=== PATIENT | female | born 1960 | race Caucasian/White ===

== ENCOUNTER → 2018-01-03 09:45 | Outpatient (CLI) | payer OTHER, SELFPAY ==
[2018-01-03 11:53] LABS: Absolute Lymphocyte Count 3.04 X10^3/ul (0.83-4.51); Absolute Neutrophil Count 4.1 X10^3/uL (2.0-7.7); Basophil# 0.02 X10^3/uL; Basophil% 0.3 % (0-1); Eosinophil# 0.14 X10^3/uL; Eosinophils% 1.8 % (0-5); Hemoglobin 14.8 g/dl (12.0-15.0); Lymphocyte # 3.04 X10^3/ul (4.0); Lymphocyte % 38.6 % (19-41); Mean Corp Hgb Conc 32.2 g/gl (32-36); Mean Corpuscular Hgb 28.6 pg (27.0-32.0); Mean Platelet Vol. 8.9 fl (6.2-12.0); Monocyte# 0.55 X10^3/uL; Neutrophil # 4.11 X10^3/uL (2.7-7.7); Neutrophil % 52.2 % (47-70); Platelet Count 328 K/mm3 (150-450); RBC Distribution Width CV 13.4 % (11.6-14.6); RBC Distribution Width SD 43.2 fl (35.1-43.9); Red Blood Count 5.17 M/mm3 (4.2-5.4); White Blood Count 7.9 K/mm3 (4.4-11.0)
[2018-01-03 11:54] LABS: POSITIVE COUNT NO; POSITIVE DIFFERENTIAL NO; POSITIVE MORPHOLOGY NO
[2018-01-03 12:09] LABS: Vitamin D,25 Hydroxy 55.8 ng/mL (29.95-100.01)
[2018-01-03 12:11] LABS: ALB/GLOB Ratio 0.8 RATIO (0.9-2.4); AST(SGOT) 21 U/L (15-37); Alanine Aminotransfer ALT/SGPT 30 U/L (13-56); Albumin, Serum 3.3 g/dL (3.2-5.0); Alkaline Phosphatase 71 U/L (45-117); Anion Gap 10 (5-15); BUN 12 mg/dL (7-18); BUN/Creat Ratio 15.4 RATIO (10-20); Calcium,Total 8.6 mg/dL (8.5-10.1); Chloride 103 mmol/L (98-107); Creatinine, Serum 0.78 mg/dL (0.55-1.02); EST Glomerular Filtration Rate 82 mL/min (>60); Est Glom Filt Rate - Afr Amer 99 mL/min (>60); Glucose 92 mg/dL (74-106); Potassium 4.5 mmol/L (3.5-5.1); Protein, Total 7.3 g/dL (6.4-8.2); Sodium Level 140 mmol/L (136-145); T4 Free Direct 1.33 ng/dL (0.76-1.46); Thyroid Stim Hormone (TSH) 2.42 uIU/mL (0.358-3.74)
== END ==
PROVIDERS: Family Provider Family Medicine; PCP Family Medicine; Visit Provider Family Medicine
DX: E55.9 Vitamin D deficiency, unspecified (principal); F32.9 Major depressive disorder, single episode, unspecified; E78.5 Hyperlipidemia, unspecified; I10 Essential (primary) hypertension
CPT/HCPCS: 36415; 80053; 82306; 84439; 84443; 85025

== ENCOUNTER → 2024-11-22 | Outpatient (CLI) | payer OTHER, SELFPAY ==
[2024-11-22 12:35] LABS: Absolute Lymphocyte Count 3.22 X10^3/uL (0.83-4.51); Absolute Neutrophil Count 3.2 X10^3/uL (2.0-7.7); Basophil# 0.05 X10^3/uL; Basophil% 0.7 % (0-1); Eosinophil# 0.23 X10^3/uL; Eosinophils% 3.2 % (0-5); Hematocrit 45.3 % (37-47); Hemoglobin 14.3 g/dL (12.0-15.0); Lymphocyte # 3.22 X10^3/ul (0.83-4.51); Lymphocyte % 44.2 % (19-41); Mean Corp Hgb Conc 31.6 g/dL (32-36); Mean Corpuscular Hgb 28.8 pg (27.0-32.0); Mean Corpuscular Volume 91.3 fL (81-99); Monocyte# 0.56 X10^3/uL; Monocyte% 7.7 % (0-10); NRBC Flagged by Analyzer 0 % (0-5); Neutrophil # 3.22 X10^3/uL (2.7-7.7); Neutrophil % 44.1 % (47-70); Platelet Count 296 K/mm3 (150-450); RBC Distribution Width CV 13.2 % (11.6-14.6); RBC Distribution Width SD 44.4 fl (35.1-43.9); Red Blood Count 4.96 M/mm3 (4.2-5.4); White Blood Count 7.3 K/mm3 (4.4-11.0)
[2024-11-22 13:17] LABS: ALB/GLOB Ratio 1.4 RATIO (0.9-2.4); AST(SGOT) 28 U/L (<=31); Alanine Aminotransfer ALT/SGPT 31 U/L (<=34); Albumin, Serum 4.1 g/dL (3.4-4.8); Alkaline Phosphatase 68 U/L (35-104); Anion Gap 11 (5-15); BUN 18 mg/dL (4-19); BUN/Creat Ratio 20.2 RATIO (10-20); Calcium,Total 9.3 mg/dL (7.6-11.0); Carbon Dioxide 22.5 mmol/L (21.0-32.0); Chloride 106 mmol/L (98-108); Cholesterol 215 mg/dL (<=200); Creatinine, Serum 0.88 mg/dL (0.70-1.20); EST Glomerular Filtration Rate 74 (>60); Glucose 99 mg/dL (70-99); High Density Lipoprotein 44 mg/dL; Low Density Lipoprotein Calc. 149 mg/dL; Potassium 4.7 mmol/L (3.3-5.1); Protein, Total 7.1 g/dL (5.9-8.4); Sodium Level 139 mmol/L (133-145); Total Bilirubin 0.52 mg/dL (0.00-1.30); Triglycerides 109 mg/dL; Very Low Density Lipoprotein 22 mg/dL (5-40); cholesterol:hdl ratio screen 4.84
== END | disposition home or self-care (01) ==
LOC: BIMLAB 09:58
PROVIDERS: PCP Internal Medicine; Referring Provider Internal Medicine; Visit Provider Internal Medicine
DX: Z00.00 Encounter for general adult medical examination without abnormal findings (principal)
CPT/HCPCS: 36415; 80053; 80061; 85025

== ENCOUNTER → 2024-12-12 | Outpatient (CLI) | payer OTHER, SELFPAY ==
--- NOTE | 2024-12-12 16:21 | BD_ITS ---
PROCEDURE: DEXA BONE DENSITY STUDY 12/12/2024 REASON FOR EXAM: POST MENOPAUSAL F, age 64 y/o . Postmenopausal. TECHNIQUE: DEXA BONE DENSITY STUDY COMPARISON: None FINDINGS: BMD and T-SCORES Lumbar spine: 1.035 g/cm2, T-score -0.1 Levels: L1 through L4 Left femoral neck: 0.665 g/cm2, T-score -1.7 Femoral neck comparison data not recommended for monitoring change. Left total hip: 0.815 g/cm2, T-score -1.0 Right femoral neck: 0.695 g/cm2, T-score -1.4 Femoral neck comparison data not recommended for monitoring change. Right total hip: 0.771 g/cm2, T-score -1.4 The World Health Organization has defined the following categories based on bone density: Normal bone density: T-score equal to or greater than -1.0 Osteopenia: T-score between -1.0 and -2.5 Osteoporosis: T-score equal to or less than -2.5 The patient does meet the pharmacological treatment recommendations for prevention of osteoporosis. BD/Dexa Bone Density Study IMPRESSION: OSTEOPENIA. Recommend follow-up as clinically warranted. Reading Location: [place] [id number]
== END | disposition home or self-care (01) ==
LOC: OPBD 16:17
PROVIDERS: PCP Internal Medicine; Referring Provider Internal Medicine; Visit Provider Internal Medicine
DX: Z13.820 Encounter for screening for osteoporosis (principal); Z78.0 Asymptomatic menopausal state
CPT/HCPCS: 77080

== ENCOUNTER → 2025-05-12 | Outpatient (CLI) | payer OTHER, SELFPAY ==
--- OUTSIDE RECORDS SUMMARY | 2025-05-12 08:08 | XMS RPT_ITS | CCD ---
Author Organization [facility] Care Team Providers Care Barrel [place] Name Role Phone Micheal Rust MD Primary Care Provider [phone] Barrera LIN, Dr. Burton Primary Care Provider Desiree Rust MD, Dr. Burton Referring Provider UnavailDillon Sharif Attending Provider Dr. Rizwan Guzman MD Attending Provider Dr. Rizwan Guzman MD Primary Care Provider Dr. Rizwan Guzman MD Referring Provider Dr. Micheal Rust MD Primary Care Provider Desiree Rust MD, Dr. Burton Referring Provider UnavailDillon Sharif Attending Provider Oleghe, Efewongbe Referring Unavailable Oleghe, Efewongbe Primary Care Unavailable Dillon Hernandez Attending Unavailable Oleghe, Efewongbe Attending Unavailable Oleghe, Efewongbe Referring Unavailable Oleghe, Efewongbe Primary Care Unavailable Oleghe, Efewongbe Attending Unavailable Oleghe, Efewongbe Referring Unavailable Oleghe, Efewongbe Primary Care Unavailable Maryjoe, Efewongbe Attending Unavailable Micheal Rust Primary Care Unavailable Micheal Rust Referring Unavailable Dillon Hernandez Attending Unavailable Micheal Rust Primary Care Unavailable Micheal Rust Referring Unavailable Rizwan Guzman MD Primary Care Provider OLEGHE, EFEWONGBE B Primary Care Unavailable OLEGHE, EFEWONGBE B Attending Unavailable OLEGHE, EFEWONGBE B Referring Unavailable Allergies Allergy Classification Reported Allergen(s) Allergy Type Date of Onset Reaction(s) Facility (4 sources) Penicillins Allergy to substance 5 [facility] (4 sources) Tetracyclines Allergy to substance 5 [facility] (1 source) Penicillins Drug allergy (disorder) 5 [facility] Repository (1 source) Tetracyclines Drug allergy (disorder) 5 [facility] Repository Medications Current Medications Medication Drug Class(es) Dates Sig (Normalized) Sig (Original) biotin 1 mg chewable tablet (4 sources) Start: 09-22-2024 take 1 tablet by mouth once daily Biotin 1,000 mcg tablet,chewable Active 1000 ug PO daily September 22, 2024 12:00am busPIRone hydrochloride 7.5 mg oral tablet (8 sources) Start: 09-22-2024 End: 02-12-2025 take 1 tablet by mouth twice daily as needed for anxiety Buspirone 7.5 mg tablet Active 7.5 mg PO TWICE A DAY as needed for anxiety 90 0 February 12, 2025 9:21am cholecalciferol 0.05 mg oral capsule (4 sources) Vitamin D Start: 09-22-2024 take 1 capsule by mouth once daily Cholecalciferol (Vitamin D3) 50 mcg (2,000 unit) capsule Active 50 ug PO daily September 22, 2024 12:00am estradiol 1 mg oral tablet (7 sources) Estrogen Start: 02-18-2016 End: 11-22-2024 take 1 tablet by mouth once daily Estradiol 1 mg tablet Active 1 mg PO DAILY 90 1 November 22, 2024 10:16am fluticasone propionate 0.05 mg/actuat metered dose nasal spray (4 sources) Corticosteroid Start: 09-22-2024 take 50 ug nasal route once daily as needed Fluticasone Propionate (Flonase Allergy Relief) 50 mcg/actuation spray,suspension Active 1 NMA INTRANASAL daily as needed September 22, 2024 12:00am administer into each nostril lisinopril 10 mg oral tablet (7 sources) Angiotensin Converting Enzyme Inhibitor Start: 09-22-2024 End: 11-22-2024 Lisinopril 10 mg tablet Active 15 mg PO daily 135 90 November 22, 2024 10:15am loratadine 10 mg oral tablet (4 sources) Start: 11-22-2024 take 1 tablet by mouth once daily as needed Loratadine (Claritin) 10 mg tablet Active 10 mg PO daily as needed November 22, 2024 12:00am methylcellulose 500 mg oral tablet (4 sources) Start: 09-22-2024 take 1 tablet by mouth twice daily Methylcellulose (Laxative) (Citrucel) 500 mg tablet Active 500 mg PO TWICE A DAY September 22, 2024 12:00am solifenacin succinate 10 mg oral tablet (7 sources) Cholinergic Muscarinic Antagonist Start: 09-22-2024 End: 11-22-2024 take 1 tablet by mouth once daily Solifenacin 10 mg tablet Active 10 mg PO daily 90 1 November 22, 2024 10:15am Completed/Discontinued Medications Medication Drug Class(es) Dates Sig (Normalized) Sig (Original) aspirin 81 mg chewable tablet (4 sources) Platelet Aggregation Inhibitor, Nonsteroidal Anti-inflammatory Drug Start: 6 End: 5 take 1 tablet by mouth once daily Aspirin 81 MG tablet,chewable Discontinued 81 mg PO DAILY@0800 February 18, 2016 12:00am September 22, 2024 3:28pm benzonatate 100 mg oral capsule (4 sources) Non-narcotic Antitussive Start: 5 End: 5 take 2 capsules by mouth three times daily as needed for cough Benzonatate 100 mg capsule Discontinued 200 mg PO THREE TIMES A DAY as needed for cough 30 0 September 22, 2024 12:00am February 23, 2025 6:58am ciprofloxacin 500 mg oral tablet (4 sources) Quinolone Antimicrobial Start: 6 End: 3 take 1 tablet by mouth twice daily Ciprofloxacin Hcl 500 MG tablet Discontinued 500 mg PO TWICE A DAY 6 0 February 25, 2016 12:00am April 26, 2023 10:55am dextroamphetamine sulfate 15 mg extended release oral capsule (4 sources) Central Nervous System Stimulant Start: 6 End: 5 take 1 capsule by mouth once daily Dextroamphetamine Sulfate 15 MG capsule, extended release Discontinued 15 mg PO DAILY February 18, 2016 12:00am September 22, 2024 3:31pm 24 hr isosorbide mononitrate 30 mg extended release oral tablet (4 sources) Nitrate Vasodilator Start: 6 End: 5 take 1 tablet by mouth once daily, then take 1 tablet by mouth every twenty-four hours Isosorbide Mononitrate 30 MG tablet extended release 24 hr Discontinued 30 mg PO DAILY February 18, 2016 12:00am September 22, 2024 3:31pm methylPREDNISolone 4 mg oral tablet (8 sources) Corticosteroid Start: 1 End: 5 take 1 tablet by mouth once Methylprednisolone (Medrol (Gomez)) 4 mg tablets,dose pack Discontinued 4 mg PO per package directions 21 6 0 September 22, 2024 12:00am September 27, 2024 12:00am September 28, 2024 12:14am nitrofurantoin, macrocrystals 25 mg / nitrofurantoin, monohydrate 75 mg oral capsule (4 sources) Nitrofuran Antibacterial Start: 3 End: 3 take 1 capsule by mouth every twelve hours at mealtime Nitrofurantoin Monohyd/M-Cryst (Macrobid) 100 mg capsule Discontinued 100 mg PO Q12H 14 7 0 April 26, 2023 12:00am May 02, 2023 12:00am May 03, 2023 1:04am must administer with a meal/food phenazopyridine hydrochloride 100 mg oral tablet (4 sources) Start: 6 End: 5 take 1 tablet by mouth three times daily Phenazopyridine 100 MG tablet Discontinued 100 mg PO THREE TIMES A DAY 14 0 February 25, 2016 12:00am September 22, 2024 3:31pm simvastatin 40 mg oral tablet (4 sources) HMG-CoA Reductase Inhibitor Start: 6 End: 5 take 1 tablet by mouth at bedtime Simvastatin 40 MG tablet Discontinued 40 mg PO AT BEDTIME February 18, 2016 12:00am September 22, 2024 3:31pm Problems Active Problems Problem Classification Problem Date Documented Da te Episodic/Chronic Administrative/social admission (6 sources) First encounter by subject; Translations: [Persons encountering health services in other specified circumstances] 11-22-2024 Episodic Anxiety disorders (3 sources) Anxiety; Translations: [Anxiety disorder, unspecified] 11-22-2024 Chronic Essential hypertension (7 sources) Hypertensive disorder; Translations: [Essential (primary) hypertension] 09-22-2024 Chronic Other diseases of bladder and urethra (6 sources) Overactive bladder; Translations: [Overactive bladder] 11-22-2024 Chronic Other screening for suspected conditions (not mental disorders or infectious disease) (15 sources) Patient encounter status; Translations: [Encounter for screening mammogram for malignant neoplasm of breast] Onset: 11-22-2024 Episodic Unclassified (9 sources) Encounter for screening for malignant neoplasm of colon; Translations: [Z12.11 - Encounter for screening for malignant neoplasm of colon] Unclassified (4 sources) Z00.00 - Encounter for general adult medical examination without abnormal findings Unclassified (1 source) Encounter for preventive care Urinary tract infections (4 sources) Urinary tract infectious disease; Translations: [Urinary tract infection, site not specified] 04-26-2023 Episodic Past or Other Problems Problem Classification Problem Date Documented Da te Episodic/Chronic Acute bronchitis (8 sources) Acute bronchitis; Translations: [Acute bronchitis, unspecified] Onset: 11-22-2024 09-22-2024 Episodic Unclassified (2 sources) Patient encounter status 03-22-2025 Results Test Name Value Interpretation Reference Range Facility MAMMO SCREENING WITH BESSY BI LATERALon 03-22-2025 MAMMO SCREENING WITH BESSY BILATERAL EXAM: MAMMO SCREENING WITH BESSY BILATERAL, 03/22/2025 12:58 PM CLINICAL INDICATIONS: Screening COMPARISON: March 15, 2024, March 15, 2023, March 19, 2022 TECHNIQUE: 3-D MLO and CC digital tomosynthesis images were obtained of the bilateral breasts. Synthetic 2-D images were generated from the tomosynthesis data. Computer aided detection was utilized. FINDINGS: Breast Density: The breasts are heterogeneously dense, which may obscure small masses. There are no suspicious masses, calcifications, or architectural distortions. IMPRESSION: No mammographic evidence of malignancy. BI-RADS: 1: Negative Recommendation: Routine mammography. Recommendation Laterality: Bilateral The current National [employer] Network and [employer] guidelines recommend women undergo a screening mammogram every year over the age of 40 and continue mammographic screening as long as they are in good health. Screening mammography under age 40 may occur for women who are at increased risk for breast cancer. [facility] Facility: [facility], [address] [place] [address], Table formatting from the original result was not included. MAMMO STANDARD RISK MQ[facility] SITE BEGIN [facility] [address] [place], [place] [address] MQSA SITE END Normal [facility] MG Breast - bilateral Screen ingon 03-22-2025 IMPRESSION: No mammographic evidence of malignancy. BI-RADS: 1: Negative Recommendation: Routine mammography. Recommendation Laterality: Bilateral The current National [employer] Network and [employer] guidelines recommend women undergo a screening mammogram every year over the age of 40 and continue mammographic screening as long as they are in good health. Screening mammography under age 40 may occur for women who are at increased risk for breast cancer. [facility] Facility: [facility], [address] [place], [place] [address], OLOGY EXAM: MAMMO SCREENING WITH BESSY BILATERAL, 03/22/2025 12:58 PM CLINICAL INDICATIONS: Screening COMPARISON: March 15, 2024, March 15, 2023, March 19, 2022 TECHNIQUE: 3-D MLO and CC digital tomosynthesis images were obtained of the bilateral breasts. Synthetic 2-D images were generated from the tomosynthesis data. Computer aided detection was utilized. FINDINGS: Breast Density: The breasts are heterogeneously dense, which may obscure small masses. There are no suspicious masses, calcifications, or architectural distortions. RADIOLOGY Santos Griffith MD - 03/22/2025 EXAM: MAMMO SCREENING WITH BESSY BILATERAL, 03/22/2025 12:58 PM CLINICAL INDICATIONS: Screening COMPARISON: March 15, 2024, March 15, 2023, March 19, 2022 TECHNIQUE: 3-D MLO and CC digital tomosynthesis images were obtained of the bilateral breasts. Synthetic 2-D images were generated from the tomosynthesis data. Computer aided detection was utilized. FINDINGS: Breast Density: The breasts are heterogeneously dense, which may obscure small masses. There are no suspicious masses, calcifications, or architectural distortions. IMPRESSION IMPRESSION: No mammographic evidence of malignancy. BI-RADS: 1: Negative Recommendation: Routine mammography. Recommendation Laterality: Bilateral The current National Comprehensive Cancer Network and [employer] guidelines recommend women undergo a screening mammogram every year over the age of 40 and continue mammographic screening as long as they are in good health. Screening mammography under age 40 may occur for women who are at increased risk for breast cancer. [facility] Facility: [facility], [address] [place] [address], [place], [place] [address], [facility] Study observation (narrative) [facility] MG Breast - bilateral Screen ingOrdered By: Santos Griffith on 03-22-2025 [facility] Work Phone: Urgent Care Visit Reporton 0 02-23-2025 Urgent Care Visit Report [facility] [address], [address] [place] [address] OFFICE VISIT Date of Service: 02/23/25 MR#: [id number] Acct: [id number] Name: SHIRA MAGALLANES Rep #: [id number] : 1960 Provider: LEONARDO Brice Age/Sex: 64/F Location: [facility] Status: Signed Intake Vital Signs 11/22/24 09:30 02/23/25 06:58 Height 5 ft 5 ft Weight: 151 lb 4 oz 150 lb BMI 29.5 29.2 BP 138/80 H 132/72 H Blood Pressure Location Rt brachial Lt brachial Position Sitting Sitting Respiration 16 Pulse 66 69 Pulse Source Monitor Monitor Temp 96.3 F L 98.3 F Temp Source Temporal Oral Pulse Oximetry (%) 99 97 Oxygen Delivery Method room air room air Intake Visit Reasons: cough Chief Complaint: Cough Accompanied by: Self Allergies Penicillins Allergy (Verified 02/23/25 06:57) Rash Tetracyclines Allergy (Verified 02/23/25 06:57) Rash Medications ???Medication ???Instructions ???Recorded ???Confirmed ???Type biotin 1,000 mcg chewable tablet 1,000 mcg PO QDAY 09/22/24 5 History cholecalciferol (vitamin D3) 50 50 mcg PO QDAY 09/22/24 02/23/25 H istory mcg (2,000 unit) capsule fluticasone propionate 50 1 spray intranasal QDAY PRN 02/23/25 History mcg/actuation nasal spray,suspension (Flonase Allergy Relief) methylcellulose (laxative) 500 mg 500 mg PO BID 09/22/24 02/23/25 H istory tablet (Citrucel) estradiol 1 mg tablet 1 mg PO DAILY #90 tabs 11/22/24 Rx lisinopril 10 mg tablet 15 mg (1.5 x 10 mg) PO QDAY 90 02/23/25 Rx days #135 tabs loratadine 10 mg tablet (Claritin) 10 mg PO QDAY PRN 11/22/2402/23 History solifenacin 10 mg tablet 10 mg PO QDAY #90 tabs 11/22/24 Rx buspirone 7.5 mg tablet 7.5 mg PO BID PRN anxiety #90 tabs 02/12/25 02/23/25 Rx benzonatate 100 mg capsule 200 mg (2 x 100 mg) PO TID PRN 02/23/25 Rx cough #30 caps methylprednisolone 4 mg tablets in 4 mg PO PER PKG DIR 6 days #21 t abs 02/23/25 02/23/25 Rx a dose pack (Medrol (Gomez)) Nurse's Note: Cough. X 2.5 weeks. [facility] Medical History (Updated 11/22/24 @ 10:[address] iRzwan Guzman MD) Overactive bladder Encounter to establish care Colon cancer screening Preventative health care Anxiety Hypertension History of kidney stones Urinary tract infection with hematuria Surgical History History of cholecystectomy History of appendectomy History of hysterectomy Family History (Updated 11/22/24 @ 09:26 by Nicol Martínez) Father Alcoholism Mother Depression Anxiety Hypertension Hyperlipidemia Aunt Breast cancer Cervical cancer Grandmother Colon cancer Social History (Updated 11/22/24 @ 09:37 by Nicol Martínez) adopted: No household members: spouse housing: house number of children: 0 current occupational status: employed current occupational exposures/hazards: No pets and animals: No leisure activities: other history of recent travel: No Smoking Status: Never smoker alcohol intake: current alcohol intake frequency: holidays/special occasions only substance use type: does not use well-balanced diet: daily or most days caffeine: Yes eating out: 1-3 times/week during the past year weight has: remained stable what type of physical activity do you participate in: walking frequency: 1-2 times per week duration: 15-30 minutes/day seatbelt use: always do you feel safe at home: Yes HPI HPI Chief Complaint: Cough Details: SHIRA MAGALLANES, is a 64 F who presents to the office today for complaint of cough and congestion for the past 2 weeks. Patient denies hemoptysis, shortness of breath or difficulty breathing. No loss of taste or smell. No nausea, vomiting or diarrhea. No other associated symptoms or alleviating/aggrava ting factors. ROS Const Constitutional: Positive for other (see HPI, otherwise normal ROS) Exam Const General: cooperative and well developed HENMT Head: normal to inspection and atraumatic Ears: hearing grossly normal bilaterally Nose: nasal discharge clear Face and sinus: normal facial exam Mouth: oral mucosae normal Throat: abnormal tonsil bilaterally hypertrophy 1+ Resp Effort Inspection: normal respiratory effort and no audible wheezes Auscultation: Bilateral: Clear to Auscultation Cardio Palpation: normal PMI Rate: regular rate Rhythm: regular rhythm Neuro General: patient alert and CN's II-XI intact bilaterally Psych Appearance: grossly normal Mental Status: mental status grossly normal Coding Level of Care Code Off vis,est,level 3 Diagnoses Acute bronchitis J20.9 Assessment and Plan Assessment and Plan (1) Acute bronchitis: Status: Acute Medicati (more content not included)... Normal [facility] Bone density reportOrdered B y: Brant Allison on 12-13-2024 Study report Skeletal system DXA [facility] Imaging Services [address] [place] [address] Dexa Bone Density Study MR#: [id number] Acct: [id number] Name: SHIRA MAGALLANES Rep #: [id number] : 1960 F 64 From: Heraclio Allison MD PCP: Dr. Rizwan Guzman MD Status: R EG CLI Study:Dexa Bone Density Study Date of Exam: 12/12/24 Exam# [id number] Ordering Dr: Blair Guzman MD PROCEDURE: DEXA BONE DENSITY STUDY 12/12/2024 REASON FOR EXAM: POST MENOPAUSAL F, age 64 y/o . Postmenopausal. TECHNIQUE: DEXA BONE DENSITY STUDY COMPARISON: None FINDINGS: BMD and T-SCORES Lumbar spine: 1.035 g/cm2, T-score -0.1 Levels: L1 through L4 Left femoral neck: 0.665 g/cm2, T-score -1.7 Femoral neck comparison data not recommended for monitoring change. Left total hip: 0.815 g/cm2, T-score -1.0 Right femoral neck: 0.695 g/cm2, T-score -1.4 Femoral neck comparison data not recommended for monitoring change. Right total hip: 0.771 g/cm2, T-score -1.4 The World Health Organization has defined the following categories based on bonedensity: Normal bone density: T-score equal to or greater than -1.0 Osteopenia: T-score between -1.0 and -2.5 Osteoporosis: T-score equal to or less than -2.5 The patient does meet the pharmacological treatment recommendations for prevention of osteoporosis. BD/Dexa Bone Density Study IMPRESSION: OSTEOPENIA. Recommend follow-up as clinically warranted. Reading Location: [facility]- CC: Dr. Rizwan Guzman MD ~ Equipment Analyst: Signed [facility] Dexa Bone Density Studyon Dexa Bone Density Study [facility] Imaging Services [address] [place] [id number] Dexa Bone Density Study MR#: [id number] Acct: [id number] Name: SHIRA MAGALLANES Rep #: [id number] : 1960 F 64 From: Brant marcus MD PCP: Dr. Rizwan Guzman MD Status: REG CLI Study: Dexa Bone Density Study Date of Exam: 12/12/24 Exam# [id number] Ordering Dr: Rizwan Guzman MD PROCEDURE: DEXA BONE DENSITY STUDY 12/12/2024 REASON FOR EXAM: POST MENOPAUSAL F, age 64 y/o . Postmenopausal. TECHNIQUE: DEXA BONE DENSITY STUDY COMPARISON: None FINDINGS: BMD and T-SCORES Lumbar spine: 1.035 g/cm2, T-score -0.1 Levels: L1 through L4 Left femoral neck: 0.665 g/cm2, T-score -1.7 Femoral neck comparison data not recommended for monitoring change. Left total hip: 0.815 g/cm2, T-score -1.0 Right femoral neck: 0.695 g/cm2, T-score -1.4 Femoral neck comparison data not recommended for monitoring change. Right total hip: 0.771 g/cm2, T-score -1.4 The World Health Organization has defined the following categories based on bone density: Normal bone density: T-score equal to or greater than -1.0 Osteopenia: T-score between -1.0 and -2.5 Osteoporosis: T-score equal to or less than -2.5 The patient does meet the pharmacological treatment recommendations for prevention of osteoporosis. BD/Dexa Bone Density Study IMPRESSION: OSTEOPENIA. Recommend follow-up as clinically warranted. Reading Location: [place] [address] CC: Dr. Rizwan Guzman MD Equipment Analyst: Signed Normal [facility] Absolute lymphocyte countOrd ered By: Rizwan Guzman on 11-22-2024 Lymphocytes Auto (Unsp spec) [#/Vol] 3.22 10*3/uL 0.83-4.51 [facility] Absolute neutrophil countOrd ered By: Rizwan Guzman on 11-22-2024 Neutrophils (Bld) [#/Vol] 3.2 10*3/uL 2.0-7.7 [facility] Anion gap in Serum or Plasma Ordered By: Rizwan Guzman on 11-22-2024 Anion gap [Moles/Vol] 11 mmol/L 5-15 [facility] Automated lymphocyte count a s percentage of total leukocytesOrdered By: Rizwan Guzman on 11-22-2024 Lymphocytes/100 WBC Auto (Unsp spec) 44.2 % High 19-41 [facility] BUN/creatinine ratioOrdered By: Reginomiddleburgminnie Guzman on 11-22-2024 Urea nitrogen/Creatinine [Mass ratio] 20.2 mg/mg High 10-20 [facility] Basophil percentageOrdered B y: Rizwan Guzman on 11-22-2024 Basophils/100 WBC (Bld) 0.7 % 0-1 [facility] Bilirubin, totalOrdered By: julia Guzman on 11-22-2024 Bilirubin [Mass/Vol] 0.52 mg/dL 0.00-1.30 [facility] CBC W/Diff, Automatedon 10-27 Absolute Lymph 3.22 X10 3/uL Normal 0.83-4.51 [facility] Comment on above: Performed By: #### L 500.4050, L100.0100, L500.4100 #### [facility] Laboratory [address] [place], [address] Absolute Neut 3.2 X10 3/uL Normal 2.0-7.7 [facility] Comment on above: Performed By: #### L 500.4050, L100.0100, L500.4100 #### [facility] Laboratory [address] [place], [address] Basophils/100 WBC (Bld) 0.7 % Normal 0-1 [facility] Comment on above: Performed By: #### L 500.4050, L100.0100, L500.4100 #### [facility] Laboratory [address] [place], [address] Eosinophils/100 WBC (Bld) 3.2 % Normal 0-5 [facility] Comment on above: Performed By: #### L 500.4050, L100.0100, L500.4100 #### [facility] Laboratory [address] [place], [address] Erythrocyte distribution width (RBC) [Ratio] 13.2 % Normal 11.6-14.6 [facility] Comment on above: Performed By: #### L 500.4050, L100.0100, L500.4100 #### [facility] Laboratory [address] [place], [address] Hematocrit (Bld) [Volume fraction] 45.3 % Normal 37-47 [facility] Comment on above: Performed By: #### L 500.4050, L100.0100, L500.4100 #### [facility] Laboratory [address] [place], [address] Hemoglobin (Bld) [Mass/Vol] 14.3 g/dL Normal 12.0-15.0 [facility] Comment on above: Performed By: #### L 500.4050, L100.0100, L500.4100 #### [facility] Laboratory [address] [place], [address] IG% 0.100 Normal 0.0-0.9 [facility] Comment on above: Result Comment: IG% - Immature Granulocytes (promyelocytes, myelocytes and metamyelocytes) > 1% indicates that a LEFT SHIFT is Present. Performed By: #### L 500.4050, L100.0100, L500.4100 #### [facility] Laboratory [address] [place], [address] Lymphocytes/100 WBC (Bld) 44.2 % High 19-41 [facility] Comment on above: Performed By: #### L 500.4050, L100.0100, L500.4100 #### [facility] Laboratory [address] [place], [address] MCH (RBC) [Entitic mass] 28.8 pg Normal 27.0-32.0 [facility] Comment on above: Performed By: #### L 500.4050, L100.0100, L500.4100 #### [facility] [facility] [address] [place], [address] MCHC (RBC) [Mass/Vol] 31.6 g/dL Low 32-36 [facility] Comment on above: Performed By: #### L 500.4050, L100.0100, L500.4100 #### [facility] [address] [place], [address] MCV (RBC) [Entitic vol] 91.3 fL Normal 81-99 [facility] Comment on above: Performed By: #### L 500.4050, L100.0100, L500.4100 #### [facility] [address] [place], [address] Monocytes/100 WBC (Bld) 7.7 % Normal 0-10 [facility] Comment on above: Performed By: #### L 500.4050, L100.0100, L500.4100 #### [facility] [address] [place], [address] Neutrophils/100 WBC (Bld) 44.1 % Low 47-70 [facility] Comment on above: Performed By: #### L 500.4050, L100.0100, L500.4100 #### [facility] [address] [place], [address] Nucleated RBC (Bld) [#/Vol] 0 10*3/uL Normal 0-5 [facility] Comment on above: Performed By: #### L 500.4050, L100.0100, L500.4100 #### [facility] [address] [place], [address] Platelet mean volume (Bld) [Entitic vol] 9.0 fL Normal 6.2-12.0 [facility] Comment on above: Performed By: #### L 500.4050, L100.0100, L500.4100 #### [facility] [address] [place], [address] Platelets (Bld) [#/Vol] 296 10*3/uL Normal 150-450 [facility] Comment on above: Performed By: #### L 500.4050, L100.0100, L500.4100 #### [facility] [address] [place], [address] RBC (Bld) [#/Vol] 4.96 10*6/uL Normal 4.2-5.4 [facility] Comment on above: Performed By: #### L 500.4050, L100.0100, L500.4100 #### [facility] [address] [place], [address] RDW SD 44.4 fl High 35.1-43.9 [facility] Comment on above: Performed By: #### L 500.4050, L100.0100, L500.4100 #### [facility] [address] [place], [address] WBC (Bld) [#/Vol] 7.3 10*3/uL Normal 4.4-11.0 [facility] Comment on above: Performed By: #### L 500.4050, L100.0100, L500.4100 #### [facility] [address] [place], [address] Calculated very low density lipoprotein (VLDL) cholesterol measurementOrdered By: Rizwan Guzman on 11-22-2024 Calculated very low density lipoprotein (VLDL) cholesterol measurement 22 mg/dL 5-40 [facility] Carbon dioxide, total [Moles /volume] in Central venous bloodOrdered By: Rizwan Guzman on 11-22-2024 CO2 [Moles/Vol] 22.5 mmol/L 21.0-32.0 [facility] Chloride assayOrdered By: Charleen Guzman on 11-22-2024 Chloride [Moles/Vol] 106 mmol/L 98-108 [facility] Comprehensive Metabolic Prof ilon 11-22-2024 Albumin [Mass/Vol] 4.1 g/dL Normal 3.4-4.8 [facility] Comment on above: Performed By: #### L 500.4050, L100.0100, L500.4100 #### [facility] [address] [place], [address] Albumin/Globulin [Mass ratio] 1.4 {ratio} Normal 0.9-2.4 [facility] Comment on above: Performed By: #### L 500.4050, L100.0100, L500.4100 #### [facility] [address] [place], [address] ALK PHOS 68 U/L Normal 35-104 [facility] Comment on above: Performed By: #### L 500.4050, L100.0100, L500.4100 #### [facility] [address] [place], [address] ALT [Catalytic activity/Vol] 31 U/L Normal <=34 [facility] Comment on above: Performed By: #### L 500.4050, L100.0100, L500.4100 #### [facility] [address] [place], [address] AST [Catalytic activity/Vol] 28 U/L Normal <=31 [facility] Comment on above: Performed By: #### L 500.4050, L100.0100, L500.4100 #### [facility] [address] [place], [address] Bilirubin [Mass/Vol] 0.52 mg/dL Normal 0.00-1.30 [facility] Comment on above: Performed By: #### L 500.4050, L100.0100, L500.4100 #### [facility] [address] [place], [address] BUN/CRE 20.2 RATIO High 10-20 [facility] Comment on above: Performed By: #### L 500.4050, L100.0100, L500.4100 #### [facility] [address] [place], [address] Calcium [Mass/Vol] 9.3 mg/dL Normal 7.6-11.0 [facility] Comment on above: Performed By: #### L 500.4050, L100.0100, L500.4100 #### [facility] [address] [place], [address] Chloride [Moles/Vol] 106 mmol/L Normal 98-108 [facility] Comment on above: Performed By: #### L 500.4050, L100.0100, L500.4100 #### [facility] [address] [place], [address] CO2 [Moles/Vol] 22.5 mmol/L Normal 21.0-32.0 [facility] Comment on above: Performed By: #### L 500.4050, L100.0100, L500.4100 #### [facility] [address] [place], [address] Creatinine [Mass/Vol] 0.88 mg/dL Normal 0.70-1.20 [facility] Comment on above: Performed By: #### L 500.4050, L100.0100, L500.4100 #### [facility] [address] [place], [address] GAP 11 Normal 5-15 [facility] Comment on above: Performed By: #### L 500.4050, L100.0100, L500.4100 #### [facility] [address] [place], [address] GFR/1.73 sq M.predicted among non-blacks MDRD (S/P/Bld) [Vol rate/Area] 74 mL/min/{1.73_m2} Normal >60 [facility] Comment on above: Result Comment: mL/m in/1.73m2 CKD-EPI Creatinine Equation (2020) Performed By: #### L 500.4050, L100.0100, L500.4100 #### [facility] [address] [place], [address] Globulin (S) [Mass/Vol] 3.0 g/dL Normal 2.2-4.2 [facility] Comment on above: Performed By: #### L 500.4050, L100.0100, L500.4100 #### [facility] [address] [place], [address] Glucose [Mass/Vol] 99 mg/dL Normal 70-99 [facility] Comment on above: Performed By: #### L 500.4050, L100.0100, L500.4100 #### [facility] [address] [place], [address] Potassium [Moles/Vol] 4.7 mmol/L Normal 3.3-5.1 [facility] Comment on above: Performed By: #### L 500.4050, L100.0100, L500.4100 #### [facility] [address] [place], [address] Sodium [Moles/Vol] 139 mmol/L Normal 133-145 [facility] Comment on above: Performed By: #### L 500.4050, L100.0100, L500.4100 #### [facility] [address] [place], [address] T PROT 7.1 g/dL Normal 5.9-8.4 [facility] Comment on above: Performed By: #### L 500.4050, L100.0100, L500.4100 #### [facility] [address] [place], [address] Urea nitrogen [Mass/Vol] 18 mg/dL Normal 4-19 [facility] Comment on above: Performed By: #### L 500.4050, L100.0100, L500.4100 #### [facility] [address] [place], [address] Eosinophil percentageOrdered By: Rizwan Guzman on 11-22-2024 Eosinophils/100 WBC (Bld) 3.2 % 0-5 [facility] Erythrocyte distribution wid th ratioOrdered By: yudelkamiddle[place]minnie Guzman on 11-22-2024 Erythrocyte distribution width (RBC) [Ratio] 13.2 % 11.6-14.6 [facility] Erythrocyte distribution wid th standard deviationOrdered By: yudelkamiddleburgminnie Guzman on 11-22-2024 Erythrocyte distribution width (RBC) [Ratio] 44.4 fl High 35.1-43.9 [facility] Glomerular filtration rate ( GFR) estimation/1.73 sq m using serum, plasma, or whole bOrdered By: julia Guzman on 11-22-2024 GFR/1.73 sq M.predicted among non-blacks MDRD (S/P/Bld) [Vol rate/Area] 74 mL/min/{1.73_m2} >60 [facility] Comment on above: mL/min/1.73m2 CKD-EP I Creatinine Equation (2020) Hematocrit Auto (Bld) [Volum e fraction]Ordered By: Rizwan Guzman on 11-22-2024 Hematocrit (Bld) [Volume fraction] 45.3 % 37-47 [facility] Hemoglobin measurementOrdere d By: Rizwan Guzman on 11-22-2024 Hemoglobin (Bld) [Mass/Vol] 14.3 g/dL 12.0-15.0 [facility] Immature granulocytes/100 WB C Auto (Bld)Ordered By: Rizwan Guzman on 11-22-2024 Immature granulocytes/100 WBC (Bld) 0.100 % 0.0-0.9 [facility] Comment on above: IG% - Immature Granu locytes (promyelocytes, myelocytes and metamyelocytes) > 1% indicates that a LEFT SHIFT is Present. Internal Medicine Office Vis ladonna 11-22-2024 Internal Medicine Office Visit [facility] [address] [place] [address] OFFICE VISIT Date of Service: 11/22/24 MR#: [id number] Acct: [id number] Name: SHIRA MAGALLANES Rep #: [id number] : 1960 Provider: Dr. 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 Chief Complaint: Establish care Health Program Director Required: No Accompanied by: Is patient in pain?: No Allergies Penicillins Allergy (Verified 11/22/24 09:19) Rash Tetracyclines Allergy (Verified 11/22/24 09:19) Rash Medications ???Medication ???Instructions ???Recorded ???Confirmed ???Type benzonatate 100 mg capsule 200 mg (2 x 100 mg) PO TID PRN 11/22/24 Rx cough #30 caps biotin 1,000 mcg chewable tablet 1,000 mcg PO QDAY 09/22/24 5 History cholecalciferol (vitamin D3) 50 50 mcg PO QDAY 09/22/24 11/22/24 H istory mcg (2,000 unit) capsule fluticasone propionate 50 1 spray intranasal QDAY PRN 11/22/24 History mcg/actuation nasal spray,suspension (Flonase Allergy Relief) methylcellulose (laxative) 500 mg 500 mg PO BID 09/22/24 11/22/24 H istory tablet (Citrucel) buspirone 7.5 mg tablet 7.5 mg PO BID PRN anxiety #90 tabs 11/22/24 11/22/24 Rx estradiol 1 mg tablet 1 mg PO DAILY #90 tabs 11/22/24 Rx lisinopril 10 mg tablet 15 mg (1.5 x 10 mg) PO QDAY 90 11/22/24 Rx days #135 tabs loratadine 10 mg tablet (Claritin) 10 mg PO QDAY PRN 11/22/2411/22 History solifenacin 10 mg tablet 10 mg PO QDAY #90 tabs 11/22/24 Rx Have you fallen in the past year?: No Nurse's Note: patient needs refills [facility] Medical History (Updated 11/22/24 @ 10:[address] Rizwan Guzman MD) Overactive bladder Encounter to establish care Colon cancer screening Preventative health care Anxiety Hypertension History of kidney stones Urinary tract infection with hematuria Surgical History History of cholecystectomy History of appendectomy History of hysterectomy Family History (Updated 11/22/24 @ 09:26 by Nicol Martínez) Father Alcoholism Mother Depression Anxiety Hypertension Hyperlipidemia Aunt Breast cancer Cervical cancer Grandmother Colon cancer Social History (Updated 11/22/24 @ 09:37 by Nicol Martínez) adopted: No household members: spouse housing: house number of children: 0 current occupational status: employed current occupational exposures/hazards: No pets and animals: No leisure activities: other history of recent travel: No Smoking Status: Never smoker alcohol intake: current alcohol intake frequency: holidays/special occasions only substance use type: does not use well-balanced diet: daily or most days caffeine: Yes eating out: 1-3 times/week during the past year weight has: remained stable what type of physical activity do you participate in: walking frequency: 1-2 times per week duration: 15-30 minutes/day seatbelt use: always do you feel safe at home: Yes HPI HPI Chief Complaint: Establish care Details: SHIRA MAGALLANES, is a 64 F who presents to the office today primarily to establish care. No acute concerns at this time. Has not been seen by physician in about 5 years. Had previously followed up with Dr. Micheal Rsut. History of hypertension, she states that she has checked her blood pressure randomly at home and on average, systolic readings have been in the 120s. Currently on lisinopril which she reports compliance with. Has routine mammograms yearly, works at [employer] and gets it done there. History of hysterectomy and oophorectomy 1998, has been taking estrogen replacement since then. Never had a bone density scan. She states that her last colonoscopy was in 2014 and a 10-year follow-up was recommended, this was done by Dr. Su. Up-to-date on her shingles and had COVID vaccines up till 2022. Follows up with dermatology, not sure about her last visit but believes that it was recent. No tobacco or alcohol abuse. ROS Const Constitutional: No body ache, excessive sweating, fatigue, fever(s), frequent falls, headache(s), snoring, weakness, weight change, sleep problems or change in appetite Eyes Eyes: No blurry vision, change in vision, bulging eyes, floaters, visual disturbances, eye pain or Light sensitivity ENT ENT: No abnormal hearing, ear or mastoid pain, tinnitus, kay (more content not included)... Normal [facility] LDL calc ser/plasOrdered By: Rizwan Guzman on 11-22-2024 Cholesterol in LDL [Mass/Vol] 149 mg/dL [facility] Comment on above: Xdresiuekb=983-966 m g/dL & Higher Kljn=158 mg/dL or greater Laboratory - Chemistry and C hemistry - challengeOrdered By: Rizwan Guzman on 11-22-2024 AST [Catalytic activity/Vol] 28 U/L <32 [facility] Lipid Profileon 11-22-2024 CHOL:HDL 4.84 Normal [facility] Comment on above: Performed By: #### L 500.4050, L100.0100, L500.4100 #### [facility] Laboratory [address] [place], [address] Cholesterol [Mass/Vol] 215 mg/dL High <=200 [facility] Comment on above: Result Comment: Chol esterol level, Desirable <200 mg/dL Borderline high cholesterol 200-239 mg/dL High cholesterol >=240 mg/dL Recommendations of the NCEP Adult Treatment Panel for the following risk-cutoff thresholds for the [place] population. Performed By: #### L 500.4050, L100.0100, L500.4100 #### [facility] [address] [place], [address] Cholesterol in HDL [Mass/Vol] 44 mg/dL Normal [facility] Comment on above: Result Comment: Natasha onal Cholesterol Education Program (NCEP) guidelines: <40 mg/dL: Low HDL-cholesterol (major risk factor for CHD) >= 60 mg/dL: High HDL-cholesterol (negative risk factor for CHD) HDL-cholesterol is affected by a number of factors, e.g. smoking, exercise, hormones, sex and age. Performed By: #### L 500.4050, L100.0100, L500.4100 #### [facility] [address] [place], [address] Cholesterol in LDL [Mass/Vol] 149 mg/dL Normal [facility] Comment on above: Result Comment: Bord ucqtly=693-454 mg/dL Higher Jjkg=186 mg/dL or greater Performed By: #### L 500.4050, L100.0100, L500.4100 #### [facility] [address] [place], [address] Cholesterol in VLDL [Mass/Vol] 22 mg/dL Normal 5-40 [facility] Comment on above: Performed By: #### L 500.4050, L100.0100, L500.4100 #### [facility] [address] [place], [address] Triglyceride [Mass/Vol] 109 mg/dL Normal [facility] Comment on above: Result Comment: The drugs N-Acetylcysteine and Metamizole may falsely depress this assay. Normal range: <150 mg/dL Borderline High: 150-199 mg/dL High: 200-499 mg/dL Very High: >500 mg/dL Performed By: #### L 500.4050, L100.0100, L500.4100 #### [facility] [address] [place], [address] MCV (mean corpuscular volume ) determinationOrdered By: Rizwan Guzman on 11-22-2024 MCV (RBC) [Entitic vol] 91.3 fL 81-99 [facility] Mean corpuscular hemoglobin (MCH) determinationOrdered By: Rizwan Guzman on 11-22-2024 MCH (RBC) [Entitic mass] 28.8 pg 27.0-32.0 [facility] Mean corpuscular hemoglobin concentration (MCHC) determinationOrdered By: Rizwan Guzman on 11-22-2024 MCHC (RBC) [Mass/Vol] 31.6 g/dL Low 32-36 [facility] Mean platelet volume determi nationOrdered By: Rizwan Guzman on 11-22-2024 Platelet mean volume (Bld) [Entitic vol] 9.0 fL 6.2-12.0 [facility] Monocyte percentageOrdered B y: Rizwan Guzman on 11-22-2024 Monocytes/100 WBC (Bld) 7.7 % 0-10 [facility] Neutrophil percentageOrdered By: yudelkam[place]minnie Guzman on 11-22-2024 Neutrophils/100 WBC (Bld) 44.1 % Low 47-70 [facility] Nucleated red blood cell per centageOrdered By: Rizwan Guzman on 11-22-2024 Nucleated RBC/100 WBC (Bld) [Ratio] 0 % 0-5 [facility] Platelet countOrdered By: Charleen Guzman on 11-22-2024 Platelets (Bld) [#/Vol] 296 10*3/uL 150-450 [facility] Potassium measurement (mass/ volume)Ordered By: Rizwan Guzman on 11-22-2024 Potassium (Unsp spec) [Mass/Vol] 4.7 mmol/L 3.3-5.1 [facility] RBC Auto (Bld) [#/Vol]Ordere d By: Rizwan Guzman on 11-22-2024 RBC (Bld) [#/Vol] 4.96 10*6/uL 4.2-5.4 [facility] Screening total cholesterol/ high density lipoprotein (HDL) cholesterol ratioOrdered By: Rizwan Guzman on 11-22-2024 Cholesterol.total/Choles terol in HDL [Mass ratio] 4.84 {ratio} [facility] Serum creatinine measurement (mass/volume)Ordered By: Rizwan Guzman on 11-22-2024 Creatinine [Mass/Vol] 0.88 mg/dL 0.70-1.20 [facility] Serum globulin measurementOr dered By: Rizwan Guzman on 11-22-2024 Globulin (S) [Mass/Vol] 3.0 g/dL 2.2-4.2 [facility] Serum glucose measurement (m ass/volume)Ordered By: Rizwan Guzman on 11-22-2024 Glucose [Mass/Vol] 99 mg/dL 70-99 [facility] Serum or plasma alanine moody otransferase (ALT) measurementOrdered By: Rizwan Guzman on 11-22-2024 ALT [Catalytic activity/Vol] 31 U/L <35 [facility] Serum or plasma albumin bill urement (mass/volume)Ordered By: Rizwan Guzman on 11-22-2024 Albumin [Mass/Vol] 4.1 g/dL 3.4-4.8 [facility] Serum or plasma albumin/glob ulin mass ratioOrdered By: Rizwan Guzman on 11-22-2024 Albumin/Globulin [Mass ratio] 1.4 {ratio} 0.9-2.4 [facility] Serum or plasma alkaline justino sphatase measurementOrdered By: Rizwan Guzman 11-22-2024 ALP [Catalytic activity/Vol] 68 U/L 35-104 [facility] Serum or plasma calcium bill urement (mass/volume)Ordered By: Rizwan Guzman 11-22-2024 Calcium [Mass/Vol] 9.3 mg/dL 7.6-11.0 [facility] Serum or plasma cholesterol in HDL measurement (mass/volume)Ordered By: Rizwan Guzman on 11-22-2024 Cholesterol in HDL [Mass/Vol] 44 mg/dL >40 [facility] Comment on above: National Cholesterol Education Program (NCEP) guidelines:<40 mg/dL: Low HDL-cholesterol (major risk factor for CHD)>= 60 mg/dL: High HDL-cholesterol (negative risk factor for CHD)HDL-cholesterol is affected by a number of factors, e.g. smoking, exercise, hormones, sex and age. Serum or plasma cholesterol measurement (mass/volume)Ordered By: Rizwan Guzman on 11-22-2024 Cholesterol [Mass/Vol] 215 mg/dL High <201 [facility] Comment on above: Cholesterol level, D esirable <200 mg/dLBorderline high cholesterol 200-239 mg/dLHigh cholesterol >=240 mg/dLRecommendations of the NCEP Adult Treatment Panel for the following risk-cutoff thresholds for the [place] population. Serum or plasma urea nitroge n measurement (mass/volume)Ordered By: Rizwan Guzman on 11-22-2024 Urea nitrogen [Mass/Vol] 18 mg/dL 4-19 [facility] Sodium levelOrdered By: Regino Guzman on 11-22-2024 Sodium [Moles/Vol] 139 mmol/L 133-145 [facility] Total proteinOrdered By: Santy Guzman on 11-22-2024 Protein [Mass/Vol] 7.1 g/dL 5.9-8.4 [facility] Triglycerides measurementOrd ered By: Rizwan Guzman on 11-22-2024 Triglyceride [Mass/Vol] 109 mg/dL <199 [facility] Comment on above: The drugs N-Acetylcy steine and Metamizole may falsely depress this assay. Normal range: <150 mg/dLBorderline High: 150-199 mg/dLHigh: 200-499 mg/dLVery High: >500 mg/dL White blood cell (WBC) count Ordered By: Rizwan Guzman on 11-22-2024 WBC (Bld) [#/Vol] 7.3 10*3/uL 4.4-11.0 [facility] Urgent Care Visit Reporton 0 09-22-2024 Urgent Care Visit Report [facility] [address] [place] [address] OFFICE VISIT Date of Service: 09/22/24 MR#: [id number] Acct: [id number] Name: SHIRA MAGALLANES Rep #: [id number] : 1960 Provider: LEONARDO Brice Age/Sex: 63/F Location: [facility] Status: Signed Intake Vital Signs 04/26/23 10:44 09/22/24 15:33 Height 5 ft 5 ft BP 94/70 Blood Pressure Location Lt brachial Position Sitting Respiration 16 Pulse 76 Pulse Source Monitor Temp 98.9 F Temp Source Temporal Pulse Oximetry (%) 97 Oxygen Delivery Method room air Intake Visit Reasons: CHEST COLD Health Program Director Required: No Accompanied by: Is patient in pain?: No Allergies Penicillins Allergy (Verified 09/22/24 15:28) Rash Tetracyclines Allergy (Verified 09/22/24 15:28) Rash Medications ???Medication ???Instructions ???Recorded ???Confirmed ???Type estradiol 1 mg tablet 1 mg PO DAILY 02/18/16 09/22/24 Hi story benzonatate 100 mg capsule 200 mg (2 x 100 mg) PO TID PRN 09/22/24 Rx cough #30 caps biotin 1,000 mcg chewable tablet 1,000 mcg PO QDAY 09/22/24 5 History buspirone 7.5 mg tablet 7.5 mg PO BID PRN 09/22/24 5 History cholecalciferol (vitamin D3) 50 50 mcg PO QDAY 09/22/24 09/22/24 H istory mcg (2,000 unit) capsule fluticasone propionate 50 1 spray intranasal QDAY PRN 09/22/24 History mcg/actuation nasal spray,suspension (Flonase Allergy Relief) lisinopril 10 mg tablet 15 mg PO QDAY 09/22/24 09/22/24 Hi story methylcellulose (laxative) 500 mg 500 mg PO BID 09/22/24 09/22/24 H istory tablet (Citrucel) methylprednisolone 4 mg tablets in 4 mg PO PER PKG DIR 6 days #21 t abs 09/22/24 09/22/24 Rx a dose pack (Medrol (Gomez)) solifenacin 10 mg tablet 10 mg PO QDAY 09/22/24 09/22/24 Hi story [facility] Medical History (Updated 09/22/24 @ 15:51 by LEONARDO Lang) Anxiety Hypertension History of kidney stones Urinary tract infection with hematuria Surgical History (Updated 09/22/24 @ 15:32 by Umu Parekh) History of cholecystectomy History of appendectomy History of hysterectomy Social History Smoking Status: Never smoker HPI HPI Details: SHIRA MAGALLNAES, is a 63 F who presents to the office today for complaint of cough, congestion and fatigue for the past 5 days. Patient denies fever, chills, sweats. No nausea, vomiting or diarrhea. No hemoptysis, shortness of breath or difficulty breathing. No loss of taste or smell. No other associated symptoms or alleviating/aggrava ting factors. ROS Const Constitutional: Positive for other (see HPI, otherwise normal ROS) Exam Const General: cooperative and well developed HENMT Head: normal to inspection and atraumatic Ears: hearing grossly normal bilaterally Nose: nasal discharge clear Face and sinus: normal facial exam Mouth: oral mucosae normal Throat: abnormal tonsil bilaterally hypertrophy 1+ Resp Effort Inspection: normal respiratory effort and no audible wheezes Auscultation: Bilateral: Clear to Auscultation Cardio Palpation: normal PMI Rate: regular rate Rhythm: regular rhythm Neuro General: patient alert and CN's II-XI intact bilaterally Psych Appearance: grossly normal Mental Status: mental status grossly normal Coding Level of Care Code Off vis,est,level 3 Diagnoses Acute bronchitis J20.9 Assessment and Plan Assessment and Plan (1) Acute bronchitis: Status: Acute Medications: New benzonatate 200 mg (2 x 100 mg) PO TID PRN 30 caps 0RF cough methylprednisolone (Medrol (Gomez)) 4 mg PO PER PKG DIR 21 tabs 0RF 6 days Plan Benzonatate and Medrol Dosepak as prescribed today. Encouraged to get plenty of rest, drink lots of clear liquids, and use Tylenol or Ibuprofen (unless contraindicated) for fever and comfort. Patient also educated on other symptomatic management techniques. To be seen in 7-10 days if no improvement; sooner if worsening of symptoms. Patient advised of potential red flags and when appropriate to report to the ED. Patient verbalized understanding and agreement with all the above. 09/22/24 1551 Date Dillon Krause Signature: Date (if applicable) CC: Normal [facility] MG Breast - bilateral Screen ing 03-17-2024 IMPRESSION: No mammographic evidence of malignancy. BI-RADS: 1: Negative Recommendation: Routine mammography. Recommendation Laterality: Bilateral The current National Comprehensive Cancer Network and [employer] guidelines recommend women undergo a screening mammogram every year over the age of 40 and continue mammographic screening as long as they are in good health. Screening mammography under age 40 may occur for women who are at increased risk for breast cancer. [facility] Facility: [facility], [address] [place] [address], [place] EXAM: MAMMO SCREENING WITH BESSY BILATERAL, 03/16/2024 15:00 PM CLINICAL INDICATIONS: Screening COMPARISON: 03/15/2023, 03/19/2022, 03/11/2021, 02/28/2020, 02/23/2020 TECHNIQUE: 3-D MLO and CC digital tomosynthesis images were obtained of the bilateral breasts. Synthetic 2-D images were generated from the tomosynthesis data. Computer aided detection was utilized. FINDINGS: Breast Density: The breasts are heterogeneously dense, which may obscure small masses. There are no suspicious masses, calcifications, or architectural distortions. RADIOLOGY Kathryn Phelps DO - 03/17/2024 EXAM: MAMMO SCREENING WITH BESSY BILATERAL, 03/16/2024 15:00 PM CLINICAL INDICATIONS: Screening COMPARISON: 03/15/2023, 03/19/2022, 03/11/2021, 02/28/2020, 02/23/2020 TECHNIQUE: 3-D MLO and CC digital tomosynthesis images were obtained of the bilateral breasts. Synthetic 2-D images were generated from the tomosynthesis data. Computer aided detection was utilized. FINDINGS: Breast Density: The breasts are heterogeneously dense, which may obscure small masses. There are no suspicious masses, calcifications, or architectural distortions. IMPRESSION IMPRESSION: No mammographic evidence of malignancy. BI-RADS: 1: Negative Recommendation: Routine mammography. Recommendation Laterality: Bilateral The current National Comprehensive Cancer Network and [employer] guidelines recommend women undergo a screening mammogram every year over the age of 40 and continue mammographic screening as long as they are in good health. Screening mammography under age 40 may occur for women who are at increased risk for breast cancer. [facility] Facility: [facility], [address] [place] [address], [facility] MG Breast - bilateral Screen ingOrdered By: Kathryn Phelps on 03-17-2024 [facility] Work Phone: MG Breast - bilateral Screen ingon 03-16-2024 Radiology Study observation (narrative) [facility] Vital Signs Date Time Vital Sign Value Performing Clinician Zachary tomas 02-23-2025 06:58-0400 Body height 152.[address] Micheal Rust MD [facility] 02-23-2025 06:58-0400 Body mass index (BMI) [Ratio] 29.2 kg/m2 Dr. Micheal Rust MD [facility] 02-23-2025 06:58-0400 Body temperature 98.3 [degF] Dr. Micheal Rust MD [facility] 02-23-2025 06:58-0400 Body weight 68.[address] Micheal Rust MD [facility] 02-23-2025 06:58-0400 Diastolic blood pressure 72 mm[Hg] Dr. Micheal Rust MD [facility] 02-23-2025 06:58-0400 Heart rate 69 /min Dr. Micheal Rust MD [facility] 02-23-2025 06:58-0400 SaO2% (BldA) [Mass fraction] 97 % Dr. Micheal Rust MD [facility] 02-23-2025 06:58-0400 Systolic blood pressure 132 mm[Hg] Dr. Micheal Rust MD [facility] 11-22-2024 09:30-0400 Body height 152.[address] Micheal Rust MD [facility] 11-22-2024 09:30-0400 Body mass index (BMI) [Ratio] 29.5 kg/m2 Dr. Micheal Rust MD [facility] 11-22-2024 09:30-0400 Body temperature 96.3 [degF] Dr. Micheal Rust MD [facility] 11-22-2024 09:30-0400 Body weight 68.[address] Micheal Rust MD [facility] 11-22-2024 09:30-0400 Diastolic blood pressure 80 mm[Hg] Dr. Micheal Rust MD [facility] 11-22-2024 09:30-0400 Heart rate 66 /min Dr. Micheal Rust MD [facility] 11-22-2024 09:30-0400 Respiratory rate 16 /min Dr. Micheal Rust MD [facility] 11-22-2024 09:30-0400 SaO2% (BldA) [Mass fraction] 99 % Dr. Micheal Rust MD [facility] 11-22-2024 09:30-0400 Systolic blood pressure 138 mm[Hg] Dr. Micheal Rust MD [facility] 09-22-2024 15:33-0400 Body temperature 98.9 [degF] Dr. Micheal Rust MD [facility] 09-22-2024 15:33-0400 Diastolic blood pressure 70 mm[Hg] Dr. Micheal Rust MD [facility] 09-22-2024 15:33-0400 Heart rate 76 /min Dr. Micheal Rust MD [facility] 09-22-2024 15:33-0400 Respiratory rate 16 /min Dr. Micheal Rust MD [facility] 09-22-2024 15:33-0400 SaO2% (BldA) [Mass fraction] 97 % Dr. Micheal Rust MD [facility] 09-22-2024 15:33-0400 Systolic blood pressure 94 mm[Hg] Dr. Micheal Rust MD [facility] Encounters Encounter Date Encounter Type Care Provider Facility Start: 03-22-2025 ambulatory RIZWAN GUZMAN Zachary Rosenthal Start: 03-22-2025 End: 03-22-2025 Subsequent hospital visit by physician Rizwan Guzman MD Work Phone: [facility] Comment on above: Arrived Start: 02-23-2025 End: 02-23-2025 Patient encounter procedure Dillon PATTERSON [facility] Work Phone: Start: 02-23-2025 End: 02-23-[address] Micheal Rust MD -[facility] Start: 12-12-2024 End: 12-12-[address] Micheal Rust MD [facility] Work Phone: Start: 12-12-2024 End: 12-12-[address] Rizwan Guzman MD -[facility] Work Phone: Start: 12-12-2024 End: 12-12-2024 ambulatory [facility] Facility:[facility] Start: 11-28-2024 Encounter for genera l adult medical examination without abnormal findings [facility] Start: 11-22-2024 End: 11-22-[address] Rizwan Guzman MD -[facility] Work Phone: Start: 11-22-2024 End: 11-22-[address] Rizwan Guzman MD [facility] Start: 11-22-2024 End: 11-22-[address] Micheal Rust MD [facility] Work Phone: Start: 11-22-2024 End: 11-22-2024 ambulatory [facility] Facility:[facility] Start: 09-22-2024 End: 09-22-2024 Patient encounter procedure Dillon PATTERSON [facility] Work Phone: Start: 09-22-2024 End: 09-22-2024 ambulatory Dillon PATTERSON Facility:[facility] Start: 03-16-2024 End: 03-16-2024 Subsequent hospital visit by physician Micheal Rust MD Work Phone: [facility] Comment on above: Arrived Start: 03-15-2023 End: 03-15-2023 Subsequent hospital visit by physician Micheal Rust MD Work Phone: [facility] Comment on above: Arrived Start: 03-19-2022 End: 03-19-2022 Subsequent hospital visit by physician Micheal Rust MD Work Phone: [facility] Comment on above: Arrived Procedures Date Procedure Procedure Detail Performing Clinician Start: 03-22-2025 Screening mammograph y bi 2-view breast inc cad Self-Requested [facility] Work Phone: Start: 12-12-2024 Dual energy X-ray absorptiometry Dr. Micheal Rust MD Start: 03-16-2024 Screening mammograph y bi 2-view breast inc cad Self-[facility]ed [facility] Work Phone: Plan of Treatment Date Care Activity Detail Author Start: 03-22-2026 Screening for malign ant neoplasm of breast [facility]AM[facility]CRE[facility] Start: 02-26-2025 COVID-19 VACCINE ( season) COVID-19 VACCINE ( season) [facility] Start: 02-26-2025 Influenza vaccination INFLUENZA VACC INE (#1) [facility] Start: 11-22-2024 Patient referral [facility] Work Phone: Start: 11-22-2024 CBC W Auto Different ial panel - Blood [facility] Start: 11-22-2024 Comprehensive metabo lic 2000 panel - Serum or Plasma [facility] Start: 11-22-2024 Lipid 1996 panel - S shashi or Plasma [facility] Start: 03-15-2024 Screening for malign ant neoplasm of breast MAMMOGRAM SCREENING DISCUSSION [facility] Start: 02-27-2024 Influenza vaccination INFLUENZA VACC INE (#1) [facility] Start: 03-19-2023 Screening for malign ant neoplasm of breast MAMMOGRAM SCREENING [facility]CUSSION [facility] Start: 02-26-2023 Influenza vaccination INFLUENZA VACC INE (#1) [facility] Start: 03-11-2022 Screening mammography MAMMOGRA M SCREENING DISCUSSION [facility] Start: 02-26-2022 Influenza vaccination INFLUENZA VACC INE (#1) [facility] Start: 2012 Pneumococcal vaccination PNEUM OCOCCAL VACCINE SERIES (1 of 1 - PCV) [facility] Start: 2012 Zoster vaccine hzv l duy for subcutaneous use ZOSTER (SHINGLES) VACCINE (1 of 2) [facility] Start: 10-30-2007 Colonoscopy COLORECTAL CAN CER SCREENING DISCUSSION [facility] Start: 10-30-2007 Screening for malign ant neoplasm of colon COLORECTAL CANCER SCREENING DISCUSSION [facility] Start: 2002 Fasting lipid profile LIPID SCREENIN G [facility] Start: 2002 Lipid panel LIPID SCREENING [facility] Start: 10-30-1983 Screening for malign ant neoplasm of cervix CERVICAL CANCER SCREENING DISCUSSION [facility] Start: 1981 Third diphtheria, te tanus and acellular pertussis (DTaP) vaccination TDAP (ADULT) [facility] Start: 1980 Tetanus vaccination TETANUS [facility] Start: 1977 HIV screening HIV SCREENING DISCUSSION [facility] Start: 05-01-1963 COVID-19 VACCINE (#1) COVID-19 VACCI NE (#1) [facility] Start: 1962 Hepatitis C antibody , confirmatory test HEPATITIS C VIRUS SCREENING [facility] Start: 1962 Hepatitis C screening HEPATITI S C VIRUS SCREENING [facility] Start: 1962 Tetanus vaccination TETANUS [facility] Alanine aminotransfe rase [Enzymatic activity/volume] in Serum or Plasma [facility] Albumin [Mass/volume ] in Serum or Plasma [facility] Alkaline phosphatase [Enzymatic activity/volume] in Serum or Plasma [facility] Anion gap in Serum o r Plasma [facility] Bilirubin, total measurement [facility] BUN/Creatinine ratio [facility] Calcium [Mass/volume ] in Serum or Plasma [facility] Carbon dioxide, tota l [Moles/volume] in Central venous blood [facility] Cholesterol [Mass/vo lume] in Serum or Plasma [facility] Cholesterol in HDL [Mass/volume] in Serum or Plasma [facility] Creatinine [Mass/vol ume] in Serum or Plasma [facility] DXA Bone [Mass/Area] Bone density [facility] Erythrocyte mean corpuscular volume determination [facility] Glucose [Mass/volume ] in Serum or Plasma [facility] Hematocrit [Volume Fraction] of Blood [facility] Hemoglobin [Mass/vol ume] in Blood [facility] Leukocytes [#/volume ] in Blood [facility] Low density lipoprot ein cholesterol measurement [facility] Mean corpuscular hemoglobin concentration determination [facility] Mean corpuscular hemoglobin determination [facility] Measurement of renal function [facility] End: 03-19-2022 MG Breast - bilateral Screening [facility] Work Phone: Comment on above: 1 Occurrences starti ng 03/19/2022 until 03/19/2022 End: 03-15-2023 MG Breast - bilateral Screening [facility] Work Phone: Comment on above: 1 Occurrences starti ng 03/15/2023 until 03/15/2023 Neutrophil count [facility] Neutrophil percent differential count [facility] Patient referral [facility] Work Phone: Platelets [#/volume] in Blood [facility] Potassium measurement [facility] Red blood cell count [facility] Red cell distributio n width determination [facility] Serum chloride measurement [facility] Sodium measurement [facility] Total cholesterol:HD L ratio measurement [facility] Total protein measurement [facility] Triglycerides measurement [facility] Urea nitrogen [Mass/volume] in Serum or Plasma [facility] VLDL cholesterol measurement [facility] Payers Date Payer Category Payer Self-pay 2024 Self-pay [id number] 2012 Managed Care (unspecified) [facility] [employer] [id number] 2012 Unknown [id number] 2012 Unknown [id number] 1962 Unknown [id number] Unknown [id number] Unknown [id number] Unknown [id number] Unknown [id number] Unknown [id number] Social History Date Type Detail Facility [facility] Start: 1960 Sex Assigned At Not on file [facility] Start: 10-12-2014 History of Social function [facility] Start: 10-12-2014 [facility] Start: 03-12-2021 Gender identity Identifies as female gender (finding) [facility] Start: 11-22-2024 Tobacco smoking stat us NHIS Never smoked tobacco (finding) [facility] Start: 1960 Sex Assigned At Female [facility] Sexual Orientation Heterosexual (finding) [facility] Start: 07-31-2012 Sex Female (finding) [facility] Clinical Notes 03-19-2022 to 03-22-2025 Kimmy Moyer - 03/22/2025 11:42 AM EDT Note Date & Type Note Facility 03-22-2025 History of Presen t illness Narrative Patient offered a medical [employer] portal consultant for sensitive exam. Patient declined. documented in this encounter [facility] 11-22-2024 Evaluation note Diagnosis Onset Date Resolution Colon cancer screening acute Ma y 2024 9:18am Encounter to establish care acute November 22, 2024 9 :18am Overactive bladder acute November 222024 9:18am Preventative health care acute November 22, 2024 9 :18am Hypertension chronic November 22 9:18am [facility] Work Phone: 1(584) 133-712003-28-2025 Evaluation note* Diagnosis Onset Date Resolution Status Admit Date Acute bronchitis acute September 222024 3:25pm [facility] Work Phone: 1(228) 107-875503-28-2025 Evaluation note* Diagnosis Onset Date Resolution Status Admit Date Acute bronchitis acute September 222024 3:25pm Colon cancer screening acute Ma y 2024 9:18am Encounter to establish care acute November 22, 2024 9:18am Overactive bladder acute November 222024 9:18am Preventative health care acute November 22, 2024 9:18am Hypertension chronic November 22 9:18am [facility] Work Phone: 1(445) 819-629709-19-2024 History of Present illness Narrative* Alice Mai - 03/16/2024 11:30 AM EDT Patient offered a medical [employer] portal consultant for sensitive exam. [facility] declined [facility] of Present illness Narrative* Gayle Silveira - 03/15/2023 11:45 AM EDT Patient offered a medical [employer] portal consultant for sensitive exam. Pt declined [facility] History of Present illness Narrative* Monica Jones - 03/19/2022 1:15 PM EDT Patient offered a medical [employer] portal consultant for sensitive exam. Pt declined [facility] Diagnosis Visit for screening mammogram Other screening mamm[facility] Visit for screening mammogram Other screening [facility] Visit for screening mammogram Other screening mammogram [facility] Radiology (Routine) - New Request Specialty Diagnoses / Procedures Referred By Aimee tompkins Referred To Contact Diagnoses Visit for screening mammogram Procedures MAMMO SCREENING WITH BESSY BILATERAL CHG SCREENING MAMMOGRAPHY BI 2-VIEW BREAST INC CAD CHG SCREENING DIGITAL BREAST TOMOSYNTHESIS BI [facility] Self-Requested [address] [place] [address] Phone: tel: fax: Referral ID Status Reason Start Date Expiration Date V isits Requested Visits Authorized [id number] New Request 02/13/2025 03/10/2026 1 1 [facility] Reason for Referral Specialty Diagnoses / Procedures Referred By Aimee tompkins Referred To Contact Diagnoses Visit for screening mammogram Procedures MAMMO SCREENING WITH BESSY BILATERAL CHG SCREENING MAMMOGRAPHY BI 2-VIEW BREAST INC CAD CHG SCREENING DIGITAL BREAST TOMOSYNTHESIS BI CHG SCREENING MAMMOGRAPHY BI 2-VIEW BREAST INC CAD CHG SCREENING DIGITAL BREAST TOMOSYNTHESIS BI [facility], Self-Requested [address] [place] [address] Referral ID Status Reason Start Date Expiration Date V isits Requested Visits Authorized [id number] New Request 02/10/2024 03/06/2025 1 1 Chief Complaint and Reason for Visit Chief Complaint Admit Date CHEST COLD September 22, 2024 3:2 5pm CELLAR PUMPER EST CARE November 22, 2024 9:18a m Reason for Visit Admit Date Acute bronchitis September 22, 2024 3:2 5pm Reason for Visit Admit Date Acute bronchitis September 22, 2024 3:2 5pm Colon cancer screening November 22, 2024 9: 18am Encounter to establish care November 22 9:18am Overactive bladder November 22, 2024 9:18a m Preventative health care November 22, 2024 9:18am Hypertension November 22, 2024 9:18a m Chief Complaint Admit Date CHEST COLD September 22, 2024 3:2 5pm CELLAR PUMPER EST CARE November 22, 2024 9:18a m Post menopausal December 12, 2024 4:17 pm Chief Complaint Admit Date CELLAR PUMPER EST CARE November 22, 2024 9:18a m Post menopausal December 12, 2024 4:17 pm cough February 23, 2025 6: 55am Reason for Visit Admit Date Colon cancer screening November 22, 2024 9: 18am Encounter to establish care November 22 9:18am Overactive bladder November 22, 2024 9:18a m Preventative health care November 22, 2024 9:18am Hypertension November 22, 2024 9:18a m Family History No Family History Records Found Relationship Condition Age at Onset Recorded Date/T travis father Alcoholism Unknown mother Depression Unknown Anxiety Unknown Hypertension Unknown Hyperlipidemia Unknown aunt Malignant neoplasm of breast Unknown Malignant neoplasm of cervix Unknown grandmother Malignant neoplasm of colon Unknown Advance Directives No Advanced Directives Records Found Advance Directive Response Recorded Date/ Time Advance Directives Yes February 25, 2016 11:41am Summary Purpose Additional Source Comments Reason for Visit (unrecogniz ed section and content) Specialty Diagnoses / Procedures Referred By Contac t Referred To Contact Diagnoses Visit for screening mammogram Procedures MAMMO SCREENING WITH BESSY BILATERAL MAMMO SCREENING BILATERAL CHG SCREENING MAMMOGRAPHY BI 2-VIEW BREAST INC CAD CHG SCREENING DIGITAL BREAST TOMOSYNTHESIS [facility], Self-Requested [address] [place] [address] Referral ID Status Reason Start Date Expiration Date V isits Requested Visits Authorized [id number] Pending Review 11/18/2021 12/13/2022 1 1 Referral ID Status Reason Start Date Expiration Date V isits Requested Visits Authorized [id number] New Request 01/26/2023 02/20/2024 1 1 Specialty Diagnoses / Procedures Referred By Contlogan t Referred To Contact Diagnoses Visit for screening mammogram Procedures MAMMO SCREENING WITH BESSY BILATERAL CHG SCREENING MAMMOGRAPHY BI 2-VIEW BREAST INC CAD CHG SCREENING DIGITAL BREAST TOMOSYNTHESIS BI CHG SCREENING MAMMOGRAPHY BI 2-VIEW BREAST INC CAD CHG SCREENING DIGITAL BREAST TOMOSYNTHESIS BI [facility], Self-Requested [address] [place] [address] Referral ID Status Reason Start Date Expiration Date V isits Requested Visits Authorized [id number] New Request 02/10/2024 03/06/2025 1 1 Care Teams (unrecognized sec tion and content) [employer] Relationship Specialty Start Date End Date Micheal Rust MD [address] [place] [address] PCP - General Family Medicine 09/08/19 [employer] Relationship Specialty Start Date End Date Micheal Rust MD [address] [place] [address] PCP - General Family Medicine 09/08/19 [employer] Relationship Specialty Start Date End Date Micheal Rust MD [address] [place] [address] PCP - General Family Medicine 09/08/19 Team Status: Active Member Role Status Dates Dr. Rizwan Guzman MD Primary Care Provider Active Team Status: Inactive Member Role Status Dates Dr. Micheal Rust MD Primary Care Provider Active Start: September 22, 2024 End: September 22, 2024 Dr. Micheal Rust MD Referring Provider Active Start: September 22, 2024 End: September 22, 2024 LEONARDO Lang Attending Provider Active Sta rt: September 22, 2024 End: September 22, 2024 Team Status: Inactive Member Role Status Dates Dr. Micheal Rust MD Primary Care Provider Active Start: November 22, 2024 End: November 22, 2024 Dr. Micheal Rust MD Referring Provider Active Start: November 22, 2024 End: November 22, 2024 Dr. Rizwan Guzman MD Attending Provider Active Start: November 22, 2024 End: November 22, 2024 Team Status: Active Member Role Status Dates Dr. Rizwan Guzman MD Primary Care Provider Active Start: November 22, 2024 Dr. Rizwan Guzman MD Attending Provider Active Start: November 22, 2024 Dr. Rizwan Guzman MD Referring Provider Active Start: November 22, 2024 Team Status: Inactive Member Role Status Dates Dr. Rizwan Guzman MD Primary Care Provider Active Start: November 22, 2024 End: November 22, 2024 Dr. Rizwan Guzman MD Attending Provider Active Start: November 22, 2024 End: November 22, 2024 Dr. Rizwan Guzman MD Referring Provider Active Start: November 22, 2024 End: November 22, 2024 Team Status: Inactive Member Role Status Dates Dr. Rizwan Guzman MD Primary Care Provider Active Start: December 12, 2024 End: December 12, 2024 Dr. Rizwan Guzman MD Attending Provider Active Start: December 12, 2024 End: December 12, 2024 Dr. Rizwan Guzman MD Referring Provider Active Start: December 12, 2024 End: December 12, 2024 Team Status: Active Member Role/Relationship Status Dates Dr. Rizwan Guzman MD Primary Care Provider Active Team Status: Inactive Member Role/Relationship Status Dates Dr. Micheal Rust MD Primary Care Provider Active Start: November 22, 2024 End: November 22, 2024 Dr. Micheal Rust MD Referring Provider Active Start: November 22, 2024 End: November 22, 2024 Dr. Rizwan Guzman MD Attending Provider Active Start: November 22, 2024 End: November 22, 2024 Team Status: Inactive Member Role/Relationship Status Dates Dr. Rizwan Guzman MD Primary Care Provider Active Start: November 22, 2024 End: November 22, 2024 Dr. Rizwan Guzman MD Attending Provider Active Start: November 22, 2024 End: November 22, 2024 Dr. Rizwan Guzman MD Referring Provider Active Start: November 22, 2024 End: November 22, 2024 Team Status: Inactive Member Role/Relationship Status Dates Dr. Rizwan Guzman MD Primary Care Provider Active Start: December 12, 2024 End: December 12, 2024 Dr. Rizwan Guzman MD Attending Provider Active Start: December 12, 2024 End: December 12, 2024 Dr. Rizwan Guzman MD Referring Provider Active Start: December 12, 2024 End: December 12, 2024 Team Status: Inactive Member Role/Relationship Status Dates Dr. Rizwan Guzman MD Primary Care Provider Active Start: February 23, 2025 End: February 23, 2025 Dr. Rizwan Guzman MD Referring Provider Active Start: February 23, 2025 End: February 23, 2025 Dillon PATTERSON PA Attending Provider Active Sta rt: February 23, 2025 End: February 23, 2025 [employer] Start Date End Date Rizwan Guzman MD [address] [id number] PCP - General Internal Medicine 02/13/25 Goals (unrecognized section and content) Goals may be documented in a n alternate sectionGoals may be documented in an alternate sectionGoals may be documented in an alternate sectionGoals may be documented in an alternate section INFORMATION SOURCE (unrecogn ized section and content) DATE CREATED AUTHOR 02/25/2025 [facility] DATE CREATED AUTHOR AUTHOR'S RUSSELL LYNN 03/29/2025 [facility] FOR RECORDS PERTAINING TO PATIENTS WHO ARE OR HAVE BEEN ENROLLED IN A CHEMICAL DEPENDENCY/SUBSTANCEABUSE PROGRAM, SOME INFORMATION MAY BE OMITTED. This clinical summary was aggregated from multiple sources. Caution should be exercised in using it in the provision of clinical care. This summary normalizes information from multiple sources, and as a consequence, information in this document may materially change the coding, format and clinical context of patient data. In addition, data may be omitted in some cases. CLINICAL DECISIONS SHOULD BE BASED ON THE PRIMARY CLINICAL RECORDS. [facility] provides no warranty or guarantee of the accuracy or completeness of information in this document.
[2025-05-12 09:08] LABS: Anion Gap 8 (5-15); BUN 15 mg/dL (4-19); BUN/Creat Ratio 17.0 RATIO (10-20); Calcium,Total 9.0 mg/dL (7.6-11.0); Carbon Dioxide 24.9 mmol/L (21.0-32.0); Chloride 102 mmol/L (98-108); Glucose 100 mg/dL (70-99); Potassium 4.6 mmol/L (3.3-5.1)
== END | disposition home or self-care (01) ==
LOC: LAB 08:05
PROVIDERS: PCP Internal Medicine; Referring Provider Internal Medicine; Visit Provider Internal Medicine
DX: I10 Essential (primary) hypertension (principal)
CPT/HCPCS: 36415; 80048